=== PATIENT | male | born 1990 | race Caucasian/White ===

== ENCOUNTER 2021-10-24 16:19 | Inpatient (IN) | payer SELFPAY ==
[2021-10-24 16:25] VITALS: BP 175/99; PULSE 89; RESP 18; TEMP 36.4; O2SAT 100; BMI 24.3
[2021-10-24] MEDS: LORazepam 2 mg/mL INJ 1 mL IM (16:44)
[2021-10-24] MEDS: haloperidol inj 5 mg/mL INJ 1 mL IM (16:44)
[2021-10-24 16:56] LABS: Basophils # 0.1 10^3/uL (0.0-0.1); Basophils % 0.7 %; Eosinophils # 0.1 10^3/uL (0.0-0.8); Eosinophils % 2.1 %; Hematocrit 46.4 % (42.0-52.0); Hemoglobin 15.6 g/dL (11.7-16.6); Lymphocytes # 1.2 10^3/uL (0.8-4.8); Lymphocytes % 17.7 %; Mean Corpuscular HGB Conc 33.6 g/dL (30.0-36.0); Mean Corpuscular Hemoglobin 29.9 pg (28.0-34.0); Mean Corpuscular Volume 89.1 fl (80-94); Mean Platelet Volume 9.3 fL (7.4-10.4); Monocytes # 0.7 10^3/uL (0.2-0.9); Monocytes % 9.8 %; Neutrophils # 4.69 10^3/uL (1.8-7.7); Neutrophils % 69.6 %; Nucleated Red Blood Cells % 0 %; Platelet Count 369 10^3/cmm (130-400); Red Blood Count 5.21 10^6/uL (4.1-5.3); Red Cell Distribution Width 12.6 % (12.1-15.1); White Blood Count 6.7 10^3/uL (4.0-10.0)
--- NOTE | 2021-10-24 16:57 | W.PM.NPUH&PS ---
Providers/Chief Complaint Admitting Physician: Cesar Gunn MD Chief Complaint: 96 HPI NPU History of Present Illness Yoandy Marcum is a 31 year old male who presented to the emergency department with the following report: Chief Complaint: Psychiatric Symptoms Stated Complaint: 96 Time Seen by Provider: 10/24/21 16:24 Source: patient and police Mode of arrival: other (police) Limitations: no limitations History of Present Illness: 31-year-old male who here with police hallucinations. Patient had been arrested yesterday and a 12-hour hold state when he was incarcerated yesterday he was not acting quite right not making much sense but they did discharge him with the discharge and he had got called again for some shoplifting and he had been hitting his head he states that since picking up that he has been having some hallucinations. Patient here is having flight of ideas it is hard to get a full history from Associated symptoms: Reports auditory hallucinations This is an underweight white female in hospital scrubs with adequate grooming and eye contact. No abnormal movements except for mild psychomotor retardation. Cooperative with exam in mild distress. Speech was normal rate and volume. Mood described as better than yesterday, affect slightly subdued. Thought process organized. Thought contact: patient denies suicidal or homicidal ideation, there were no delusions reported or noted, patient denied auditory or visual hallucinations. Attention and concentration appeared intact and memory appeared reliable but none were formally tested. Patient is alert and oriented times three. Insight and judgment appear fair and impulse control appears limited. He was seen in the emergency department and questions about him being able to stay for evaluation raised the consult was initiated. Patient was a limited historian mostly talking about that he came to the hospital for joint pain but not being able to explain his level of incoherence. He mentioned something about having a drink but his BAL is negative and his UDS was negative as well. He continued to be out of sorts but reported he would cooperate if he were admitted. When he was seen he was still in handcuffs from his chair. He reports that he is from [place] but that he was down here visiting his biological father. He reports he has medication including Adderall XR and his medications but did report a history of some possible psychiatric disorder like bipolar schizophrenia. But then could not articulate any more information. According to the crabbing machine operator he had been on a hold and was released from that hold but then went down into town and did strange behaviors possibly including criminal behaviors. Patient had no recollection of anything other than people getting him a hard time. He reports he smokes cigarettes but denies any other significant drug use. Other than what he reported earlier that was not identified in the drug screen. He could not really give good past history. He endorsed having some legal challenges and had adopted but here as part of his seeking out of his biological family. He denies any other issues. Meds NPU Home Medications Medication Instructions Recorded Confirmed Last Taken Type alprazolam 0.25 mg tablet 0.25 mg PO DAILY PRN 10/24/21 10/24/21 Unknown History dextroamphetamine-amphetamine 20 10 mg PO DAILY@1200 10/24/21 10/24/21 Unknown History mg tablet dextroamphetamine-amphetamine ER 30 mg PO DAILY 10/24/21 10/24/21 Unknown History 30 mg 24hr capsule,extend release (Adderall XR) gabapentin 300 mg capsule 300 mg PO TID 10/24/21 10/24/21 Unknown History trazodone 50 mg tablet 50 mg PO BEDTIME PRN 10/24/21 10/24/21 Unknown History Allergies Allergy/AdvReac Type Severity Reaction Status Date / Time No Known Allergies Allergy Verified 10/24/21 16:25 Mental Status Exam MSE Comments: There is a well-nourished well-developed white male with limited dress, grooming and eye contact. No abnormal movements except for psychomotor agitation. Semicooperative with exam in mild to moderate distress. Speech was limited and slurred but normal rate and volume. Mood described as tired affect groggy. Thought process somewhat disorganized. Thought content: Patient denied suicidal or homicidal ideation, there were no delusions reported but he did have odd thinking, he denied auditory visual hallucinations. Attention concentration were limited and memory was somewhat reliable but limited, but none were formally tested. He is alert and oriented to person and place. Insight and judgment are impaired impulse control impaired. Vitals/I&O/Wt Last Vital Signs Temp 98.2 F 10/24/21 20:51 Pulse 90 10/24/21 20:51 Resp 19 H 10/24/21 20:51 BP 146/92 10/24/21 20:51 Pulse Ox 97 10/24/21 20:51 Weight last 48 hrs Weight 95.254 kg Data NPU : 10/24/21 16:50 10/24/21 16:50 A&P Assessment and plan (1) Acute psychosis: Status: Acute (2) History of ADHD: Status: Acute Plan This is a 32-year-old white male who presents with a reported psychiatric history: ADHD and other conditions that he was unable to articulate and shares custody with reports of behavior seeming out of sorts and unable to get a real clear explanation of his current behavior 1. Continue current medication. We will try to get a better picture of his medications and past psychiatric history. 2. Continue every 15 minute checks for safety. 3. Encourage individual, group and milieu therapies. 4. Encourage sober living treatment after discharge at the highest level of care to which he is willing to commit. Involuntary Hold Information 96 Hour Hold: 96 Hour Involuntary Admission: Yes 96 Hour Hold Ending Date: 10/29/21 96 Hour Hold Ending Time: 00:01 Attestations NPU Medical Necessity Statement*: Inpatient hospitalization is medically necessary and the clinically appropriate intervention at this time. We will monitor medication to make changes as indicated. Patient will be in the hospital for over two midnights. Likely length of stay 3 to 5 days. Coding Level of Care Code Acute Coconut Candy Maker for Tami Trammell Diagnoses Acute psychosis F23 History of ADHD Z86.59
[2021-10-24 17:04] LABS: Add Urine Microscopic? NO; Charge for UA Resulting for Rev
[2021-10-24 17:09] LABS: Urine Appearance Clear (CLEAR); Urine Color Straw (Yellow); pH Urine 8 (5-7)
[2021-10-24 17:10] LABS: Bilirubin Urine Neg (Negative); Blood Urine Neg (Negative); Glucose Urine UA Norm (Normal); Ketones Urine Negative (Negative); Leukocyte Esterase Urine Negative (Negative); Nitrate Urine Negative (Negative); Protein Urine Neg (Negative); Sulfosalicylic Acid Urine Negative (Negative); Urobilinogen Urine Norm (Negative)
[2021-10-24 17:13] LABS: Alanine Aminotransferase 29 U/L (0-41); Albumin Level 4.7 g/dL (3.5-5.2); Alkaline Phosphatase 124 IU/L (40-130); Anion Gap 17.1 (5-19); Aspartate Amino Transferase 43 U/L (0-40); Blood Urea Nitrogen 6 mg/dL (6-20); Calcium 8.9 mg/dL (8.5-10.5); Carbon Dioxide 25 mmol/L (22-29); Chloride 99 mmol/L (98-107); Globulin 2.4 g/dL (1.3-4.6); Glomerular Filtration Rate 192.7 mL/min (90-130); Glucose 100 mg/dL (65-115); Osmolality Calculated 282 mOsm/kg (285-295); Potassium 4.1 mmol/L (3.5-5.1); Salicylate 0.4 mg/dL (3-10); Sodium 137 mmol/L (136-145); Total Bilirubin 0.5 mg/dL (0.15-1.2); Total Protein 7.1 g/dL (6.6-8.7)
[2021-10-24 17:14] LABS: Amphetamines Screen Urine Negative (Negative); Barbiturates Screen Urine Negative (Negative); Benzodiazepines Screen Urine Negative (Negative); Cocaine Screen Urine Negative (Negative); Opiate Screen Urine Negative (Negative); PCP Screen Urine Negative (Negative); THC Screen Urine Negative (Negative)
[2021-10-24 17:14] LABS: Acetaminophen < 5.0 ug/mL (10-30); Alcohol Level < 10 mg/dL (0-10)
--- NOTE | 2021-10-24 17:18 | W.ED.PSYCHS ---
HPI - Psych General: Chief Complaint: Psychiatric Symptoms Stated Complaint: 96 Time Seen by Provider: 10/24/21 16:24 Source: patient and police Mode of arrival: other (police) Limitations: no limitations History of Present Illness: 31-year-old male who here with police hallucinations. Patient had been arrested yesterday and a 12-hour hold state when he was incarcerated yesterday he was not acting quite right not making much sense but they did discharge him with the discharge and he had got called again for some shoplifting and he had been hitting his head he states that since picking up that he has been having some hallucinations. Patient here is having flight of ideas it is hard to get a full history from Associated symptoms: Reports auditory hallucinations Review of Systems Const: Denies: fever(s), chills, body aches or change in appetite Eyes: Denies: blurry vision or eye discomfort ENMT: Denies: throat pain or dental pain Card: Denies: chest pain Resp: Denies: dyspnea GI: Denies: abdominal pain, nausea, vomiting or diarrhea : Denies: dysuria Musc: Denies: neck pain or back pain Skin/Breast: Denies: rash Neuro: Denies: headache(s) Psych: Reports: mood swings and auditory hallucinations Moisés/Lymph: Denies: easy bruising All/Imm: Denies: urticaria Physical Exam Const: COMMON NORMALS: no acute distress, patient oriented x3 and healthy appearing HENMT: COMMON NORMALS: normocephalic and atraumatic HEAD & SCALP: normocephalic and atraumatic Eye: COMMON NORMALS: Equal, round and reactive pupils present and EOMs intact bilaterally PUPIL: Yes Equal, round and reactive pupils present Neck/C-Spine: COMMON NORMALS: full ROM and supple Chest: COMMONS NORMALS: normal inspection of the chest and normal palpation of entire chest wall Resp: COMMON NORMALS: normal respiratory effort, No retractions, No use of accessory muscles and clear to auscultation bilaterally AUSCULTATION: clear to auscultation bilaterally Cardio: COMMON NORMALS: regular rate, regular rhythm and No murmurs present (Cardio) RATE: regular rate RHYTHM: regular rhythm GI: COMMON NORMALS: Normal to inspection, nondistended, normoactive bowel sounds present, Soft to palpation, non-tender and no masses PALPATION: Yes Soft to palpation Extremity: COMMON NORMALS: normal to inspection and full ROM Neuro: COMMON NORMALS: patient oriented x3, moves all extremities and no focal motor deficits Psych: COMMON NORMALS: cooperative THOUGHT PROCESS: disorganized and Flight of ideas present THOUGHT CONTENT: Yes Hallucination(s) present Skin: COMMON NORMALS: no rashes or lesions noted and no wounds GENERAL SKIN EXAM: no rashes or lesions noted Course Vital Signs: Vital signs: Vital Signs Temperature 97.5 F L 10/24/21 16:25 Pulse Rate 89 10/24/21 16:25 Respiratory Rate 18 10/24/21 16:25 Blood Pressure 175/99 10/24/21 16:25 Pulse Oximetry 100 10/24/21 16:25 MDM - Psych Medical Decision Making Patient presents here with police with hallucinations along with erratic behavior patient placed under 96-hour hold patient was seen by Dr. Gunn in the ER will admit at this time to the Neuropsych Unit Lab Data : 10/24/21 16:50 10/24/21 16:50 Laboratory Results WBC 6.7 10^3/uL (4.0-10.0) 10/24/21 16:50 RBC 5.21 10^6/uL (4.1-5.3) 10/24/21 16:50 Hgb 15.6 g/dL (11.7-16.6) 10/24/21 16:50 Hct 46.4 % (42.0-52.0) 10/24/21 16:50 MCV 89.1 fl (80-94) 10/24/21 16:50 MCH 29.9 pg (28.0-34.0) 10/24/21 16:50 MCHC 33.6 g/dL (30.0-36.0) 10/24/21 16:50 RDW 12.6 % (12.1-15.1) 10/24/21 16:50 Plt Count 369 10^3/cmm (130-400) 10/24/21 16:50 MPV 9.3 fL (7.4-10.4) 10/24/21 16:50 Neut % (Auto) 69.6 % 10/24/21 16:50 Lymph % (Auto) 17.7 % 10/24/21 16:50 Lawrence % (Auto) 9.8 % 10/24/21 16:50 Eos % (Auto) 2.1 % 10/24/21 16:50 Baso % (Auto) 0.7 % 10/24/21 16:50 Neut # (Auto) 4.69 10^3/uL (1.8-7.7) 10/24/21 16:50 Lymph # (Auto) 1.2 10^3/uL (0.8-4.8) 10/24/21 16:50 Lawrence # (Auto) 0.7 10^3/uL (0.2-0.9) 10/24/21 16:50 Eos # (Auto) 0.1 10^3/uL (0.0-0.8) 10/24/21 16:50 Baso # (Auto) 0.1 10^3/uL (0.0-0.1) 10/24/21 16:50 Nucleated RBC % (auto) 0 % 10/24/21 16:50 Nucleated RBCs # 0.0 /100WBC 10/24/21 16:50 Sodium 137 mmol/L (136-145) 10/24/21 16:50 Potassium 4.1 mmol/L (3.5-5.1) 10/24/21 16:50 Chloride 99 mmol/L (98-107) 10/24/21 16:50 Carbon Dioxide 25 mmol/L (22-29) 10/24/21 16:50 Anion Gap 17.1 (5-19) 10/24/21 16:50 BUN 6 mg/dL (6-20) 10/24/21 16:50 Creatinine 0.5 mg/dL (0.7-1.2) L 10/24/21 16:50 GFR Calculation 192.7 mL/min (90-130) H 10/24/21 16:50 Glucose 100 mg/dL (65-115) 10/24/21 16:50 Calculated Osmolality 282 mOsm/kg (285-295) L 10/24/21 16:50 Calcium 8.9 mg/dL (8.5-10.5) 10/24/21 16:50 Total Bilirubin 0.5 mg/dL (0.15-1.2) 10/24/21 16:50 AST 43 U/L (0-40) H 10/24/21 16:50 ALT 29 U/L (0-41) 10/24/21 16:50 Alkaline Phosphatase 124 IU/L (40-130) 10/24/21 16:50 Total Protein 7.1 g/dL (6.6-8.7) 10/24/21 16:50 Albumin 4.7 g/dL (3.5-5.2) 10/24/21 16:50 Globulin 2.4 g/dL (1.3-4.6) 10/24/21 16:50 Urine Color Straw (Yellow) 10/24/21 16:55 Urine Appearance Clear (CLEAR) 10/24/21 16:55 Urine pH 8 (5-7) H 10/24/21 16:55 Ur Specific Solo 1.010 (1.005-1.030) 10/24/21 16:55 Urine Protein Neg (Negative) 10/24/21 16:55 Urine Glucose (UA) Norm (Normal) 10/24/21 16:55 Urine Ketones Negative (Negative) 10/24/21 16:55 Urine Blood Neg (Negative) 10/24/21 16:55 Urine Nitrate Negative (Negative) 10/24/21 16:55 Urine Bilirubin Neg (Negative) 10/24/21 16:55 Prot Sulfosalicylic Acd Negative (Negative) 10/24/21 16:55 Urine Urobilinogen Norm mg/dL (Negative) 10/24/21 16:55 Ur Leukocyte Esterase Negative (Negative) 10/24/21 16:55 Salicylates 0.4 mg/dL (3-10) L 10/24/21 16:50 Urine Opiates Screen Negative ng/mL (Negative) 10/24/21 16:55 Acetaminophen < 5.0 ug/mL (10-30) L 10/24/21 16:50 Ur Barbiturates Screen Negative ng/mL (Negative) 10/24/21 16:55 Ur Phencyclidine Scrn Negative ng/mL (Negative) 10/24/21 16:55 Ur Amphetamines Screen Negative ng/mL (Negative) 10/24/21 16:55 U Benzodiazepines Scrn Negative ng/mL (Negative) 10/24/21 16:55 Urine Cocaine Screen Negative ng/mL (Negative) 10/24/21 16:55 U Marijuana (THC) Screen Negative ng/mL (Negative) 10/24/21 16:55 Ethyl Alcohol < 10 mg/dL (0-10) 10/24/21 16:50 Discharge Plan Discharge Patient Disposition: Admitted As Inpatient Clinical Impression: Acute psychosis Condition: Stable Prescriptions: No Action trazodone 50 mg tablet 50 mg PO BEDTIME PRN (Reason: Insomnia) 0RF alprazolam 0.25 mg tablet 0.25 mg PO DAILY PRN (Reason: Anxiety) 0RF dextroamphetamine-amphetamine 20 mg tablet 10 mg PO DAILY@1200 0RF gabapentin 300 mg capsule 300 mg PO TID 0RF Adderall XR 30 mg capsule,extended release 24hr 30 mg PO DAILY 0RF Coding Level of Care Code ED Industrial Gas Production Operator for Tami Trammell
--- NOTE | 2021-10-24 18:38 | PC.NURSE ---
Attempted to discuss 96 hour paperwork with patient but patient keeps falling asleep.
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
[2021-10-24 20:51] VITALS: BP 146/92; PULSE 90; RESP 19; TEMP 36.8; O2SAT 97
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
[2021-10-25 06:00] VITALS: RESP 20
[2021-10-25] MEDS: gabapentin 300 mg Capsule PO ×2 (08:03→21:11)
[2021-10-25] MEDS: OLANZapine 5 mg ODT PO ×2 (08:05→14:55)
--- NOTE | 2021-10-25 10:57 | PC.NURSE ---
[facility], wallet and cell phone are in their possession. Staff to notify patient.
--- NOTE | 2021-10-25 17:35 | W.PM.NPUPNS ---
Subjective NPU Subjective: Patient presents today reporting that he is feeling groggy but wanting to leave soon as possible. He continues to be either unable or unwilling to share the circumstances that got him here. He seemed a little more active according to staff but still giving limited information to help us assist in his treatment. He reports that his medications are at his biological father's place but he does not know the number. Mental Status Exam MSE Comments: There is a well-nourished well-developed white male with limited dress, grooming and eye contact.? No abnormal movements except for psychomotor agitation.? Semicooperative with exam in mild distress.? Speech was limited and slurred but increased rate and volume.? Mood described as a little better, affect odd thought process somewhat disorganized.? Thought content: Patient denied suicidal or homicidal ideation, there were no delusions reported but he did have odd thinking, he denied auditory visual hallucinations.? Attention concentration were limited and memory was somewhat reliable but limited, but none were formally tested.? He is alert and oriented to person and place.? Insight and judgment are impaired impulse control impaired. Vitals/I&O/Wt Last Vital Signs Temp 97.7 F 10/25/21 21:26 Pulse 115 H 10/25/21 21:26 Resp 19 H 10/25/21 21:26 BP 144/98 10/25/21 21:26 Pulse Ox 99 10/25/21 21:26 Weight last 48 hrs Weight 95.254 kg Data NPU : 10/24/21 16:50 10/24/21 16:50 A&P Assessment and plan (1) History of ADHD: Status: Acute (2) Acute psychosis: Status: Acute Plan This is a 32-year-old white male who presents with a reported psychiatric history: ADHD and other conditions that he was unable to articulate and shares custody with reports of behavior seeming out of sorts and unable to get a real clear explanation of his current behavior 1.? Continue current medication.? We will try to get a better picture of his medications and past psychiatric history. 2.? Continue every 15 minute checks for safety. 3.? Encourage individual, group and milieu therapies. 4.? Encourage sober living treatment after discharge at the highest level of care to which he is willing to commit. Involuntary Hold Information 96 Hour Hold: 96 Hour Involuntary Admission: Yes 96 Hour Hold Ending Date: 10/29/21 96 Hour Hold Ending Time: 00:01 Attestations NPU Medical Necessity Statement*: Inpatient hospitalization is medically necessary and the clinically appropriate intervention at this time. We will monitor medication to make changes as indicated.Likely length of stay 2-4 days. Coding Level of Care Code Acute Mixing Picker Tender for Tami Trammell Diagnoses History of ADHD Z86.59 Acute psychosis F23
[2021-10-25] MEDS: acetaminophen 325 mg Tablet 650 MG PO (18:56)
[2021-10-25] MEDS: nicotine 2 mg Gum BUCCAL (21:11)
[2021-10-25 21:26] VITALS: BP 144/98; PULSE 115; RESP 19; TEMP 36.5; O2SAT 99
[2021-10-26 06:00] VITALS: RESP 19
[2021-10-26] MEDS: nicotine 4 mg lozenge MUCOUS MEM ×3 (08:31→20:29)
[2021-10-26] MEDS: fexofenadine 60 mg Tablet 180 MG PO (08:46)
[2021-10-26] MEDS: acetaminophen 325 mg Tablet 650 MG PO (10:23)
[2021-10-26] MEDS: gabapentin 300 mg Capsule PO ×3 (12:11→20:30)
[2021-10-26 14:00] VITALS: BP 157/100; PULSE 112; RESP 18; TEMP 36.6; O2SAT 98
[2021-10-26] MEDS: OLANZapine 5 mg ODT PO ×2 (15:46→20:32)
[2021-10-26] MEDS: ibuprofen 800 mg tablet PO (15:46)
--- NOTE | 2021-10-26 18:56 | W.PM.NPUPNS ---
Subjective NPU Subjective: Patient presents today a little more clear about his thinking. But still poor historian. Large complaint today is that his feet are very painful. He reports that he was able to find his biological father's number and will work with the social work team to get information about his medication and see if he can get any more information about his history allowing us to maybe assist him with a mood stabilizer but right now he is more focused on his pain and getting treatment for that reporting that was the reason why he wanted to come to the hospital. Mental Status Exam MSE Comments: There is a well-nourished well-developed white male with limited dress, grooming and eye contact.? No abnormal movements except for psychomotor agitation.? More cooperative with exam in mild distress.? Speech was more spontaneous and less slurred but increased rate and volume.? Mood described as a lbetter, affect odd. Thought process somewhat more organized.? Thought content: Patient denied suicidal or homicidal ideation, there were no delusions reported but he did have odd thinking, he denied auditory visual hallucinations.? Attention concentration were limited and memory was somewhat reliable but limited, but none were formally tested.? He is alert and oriented to person and place.? Insight and judgment are limited, impulse control impaired. Vitals/I&O/Wt Last Vital Signs Temp 97.9 F 10/26/21 21:41 Pulse 79 10/26/21 21:41 Resp 19 H 10/26/21 21:41 BP 147/91 10/26/21 21:41 Pulse Ox 99 10/26/21 21:41 Data NPU : 10/24/21 16:50 10/24/21 16:50 A&P Assessment and plan (1) History of ADHD: Status: Acute (2) Acute psychosis: Status: Acute Plan This is a 32-year-old white male who presents with a reported psychiatric history: ADHD and other conditions that he was unable to articulate and shares custody with reports of behavior seeming out of sorts and unable to get a real clear explanation of his current behavior 1.? Continue current medication.? We will try to get a better picture of his medications and past psychiatric history now that we have biological father's number 2.? Continue every 15 minute checks for safety. 3.? Encourage individual, group and milieu therapies. 4.? Encourage sober living treatment after discharge at the highest level of care to which he is willing to commit. 5. Evaluate patient for 96-hour hold criteria. No contact from Memorandum Statement Clerk's office about any additional obligations. Involuntary Hold Information 96 Hour Hold: 96 Hour Involuntary Admission: Yes 96 Hour Hold Ending Date: 10/29/21 96 Hour Hold Ending Time: 00:01 Attestations NPU Medical Necessity Statement*: Inpatient hospitalization is medically necessary and the clinically appropriate intervention at this time. We will monitor medication to make changes as indicated.Likely length of stay 2-4 days. Coding Level of Care Code Acute Transformation Consultant for Taim Trammell Diagnoses History of ADHD Z86.59 Acute psychosis F23
[2021-10-26] MEDS: trazodone 50 mg Tablet PO ×2 (20:42→23:10)
[2021-10-26 21:41] VITALS: BP 147/91; PULSE 79; RESP 19; TEMP 36.6; O2SAT 99
--- NOTE | 2021-10-27 04:25 | PC.NURSE ---
PT UP EARLY IN SHIFT. C/O FOOT PAIN B/L AND REQUESTED X RAYS, UNABLE TO VERBALIZE WHAT HAS HAPPENED TO HIS FEET. DR NOTIFIED, PLAN TO ADDRESS IN MORNING WITH HOSPITALIST IF PAIN CONTINUES. PT TOOK PRN TRAZODONE BUT NEEDED 2ND PRN DOSE. AFTER 2ND DOSE MEDICATION EFFECTIVE AND HAS BEEN IN BED RESTING WITH EYES CLOSED.
[2021-10-27 06:00] VITALS: BP 148/98; PULSE 75; RESP 18; TEMP 36.6; O2SAT 98
[2021-10-27] MEDS: fexofenadine 60 mg Tablet 180 MG PO (08:07)
[2021-10-27] MEDS: acetaminophen 325 mg Tablet 650 MG PO (08:08)
[2021-10-27] MEDS: nicotine 4 mg lozenge MUCOUS MEM ×2 (11:50→17:02)
[2021-10-27] MEDS: gabapentin 300 mg Capsule PO ×2 (12:19→20:59)
[2021-10-27] MEDS: nicotine 2 mg Gum BUCCAL (12:46)
--- NOTE | 2021-10-27 12:47 | XRR_ITS ---
PROCEDURE INFORMATION: Exam: XR Right Foot Exam date and time: 10/27/2021 1:23 PM Age: 31 years old Clinical indication: Right foot pain. TECHNIQUE: Imaging protocol: XR Right foot. Views: 1 or 2 views. COMPARISON: No relevant prior studies available. FINDINGS: Bones/joints: There has been remote osteotomy and bunionectomy involving the 1st metatarsal. There are headless screws in the proximal 1st metatarsal and medial cuneiform. There are advanced degenerative changes at the 1st tarsometatarsal joint. Additional mild scattered degenerative changes are seen. Tiny plantar calcaneal spur. No tibiotalar joint effusion. The Achilles tendon is grossly unremarkable. No acute fracture is identified. Soft tissues: Mild dorsal soft tissue swelling. XR/XR foot RT 2V [id number] IMPRESSION: 1. Advanced degenerative changes at the 1st tarsometatarsal joint. Additional mild scattered degenerative changes are seen. 2. Tiny plantar calcaneal spur. 3. Mild dorsal soft tissue swelling. 4. No acute fracture is seen.
--- NOTE | 2021-10-27 12:47 | XRR_ITS ---
PROCEDURE INFORMATION: Exam: XR Left Foot Exam date and time: 10/27/2021 1:37 PM Age: 31 years old Clinical indication: Left foot pain. TECHNIQUE: Imaging protocol: XR Left foot. Views: 1 or 2 views. COMPARISON: No relevant prior studies available. FINDINGS: Bones/joints: There is a mild to moderate hallux valgus deformity with bunion. Small plantar calcaneal spur. No tibiotalar joint effusion. The Achilles tendon is grossly unremarkable. No acute fracture, dislocation or subluxation is identified. Soft tissues: No significant soft tissue swelling. XR/XR foot LT 2V [id number] IMPRESSION: 1. Mild to moderate hallux valgus deformity with bunion. 2. Small plantar calcaneal spur. 3. No acute fracture is identified.
[2021-10-27 13:38] VITALS: BP 137/98; PULSE 111; RESP 18; TEMP 36.7; O2SAT 98
--- NOTE | 2021-10-27 14:18 | PM.CONSULT ---
Providers/Reason For Consult Consulting Physician/Specialty*: Cornelius Cardoza MD, hospitalist Reason for Consult*: Foot pain Requesting Physician: Dr. Gunn Attending Physician: Cesar Gunn MD History of Present Illness History of Present Illness Yoandy Marcum is a 31 year old male who was hospitalized in the neuropsychiatric unit secondary to concern of psychosis. Patient reports he really wanted seen here at the hospital, secondary to his bilateral foot pain. He reports he has been followed by printed circuit boards solder leveler in the past. Both feet hurt, but the left foot hurts worse than the right. He does have history of trauma to his left foot at some time in the last 2 to 3 weeks. It sounds like he has had surgery before, perhaps for hallux valgus deformity on the right. He is wondering what he can take for the pain. He reports he does not have any orthotics currently. He denies any other concerns to me currently, but is asking when he could potentially go home. Review of Systems General: Reports: 10 or more systems reviewed and unremarkable except in HPI and below Medications/Allergies Home Medications Medication Instructions Recorded Confirmed Last Taken Type alprazolam 0.25 mg tablet 0.25 mg PO DAILY PRN 10/24/21 10/24/21 Unknown History dextroamphetamine-amphetamine 20 10 mg PO DAILY@1200 10/24/21 10/24/21 Unknown History mg tablet dextroamphetamine-amphetamine ER 30 mg PO DAILY 10/24/21 10/24/21 Unknown History 30 mg 24hr capsule,extend release (Adderall XR) gabapentin 300 mg capsule 300 mg PO TID 10/24/21 10/24/21 Unknown History trazodone 50 mg tablet 50 mg PO BEDTIME PRN 10/24/21 10/24/21 Unknown History Allergies Allergy/AdvReac Type Severity Reaction Status Date / Time No Known Allergies Allergy Verified 10/24/21 16:25 Current Medications Generic Name Dose Route Start Last Admin Trade Name Freq PRN Reason Stop Dose Admin Acetaminophen 650 mg 10/24/21 18:51 10/27/21 08:08 Acetaminophen 325 Mg Tablet PO 650 mg Q4H PRN Administration MILD PAIN Fexofenadine HCl 180 mg 10/26/21 09:00 10/27/21 08:07 Fexofenadine 60 Mg Tablet PO 180 mg DAILY SHIRLENE Administration Gabapentin 300 mg 10/25/21 09:00 10/27/21 12:19 Gabapentin 300 Mg Capsule PO 300 mg TID SHIRLENE Administration Ibuprofen 800 mg 10/26/21 15:35 10/26/21 15:46 Ibuprofen 800 Mg Tablet PO 800 mg Q8H PRN Administration MODERATE PAIN Nicotine Polacrilex 2 mg 10/24/21 18:51 10/27/21 12:46 Nicotine 2 Mg Gum BUCCAL 2 mg Q2H PRN Administration NICOTINE WITHDRAWAL Nicotine Polacrilex 4 mg 10/26/21 08:08 10/27/21 11:50 Nicotine 4 Mg Lozenge MUCOUS MEM 4 mg Q2H PRN Administration NICOTINE CRAVINGS Non-Formulary Medication 10 mg 10/25/21 12:00 10/26/21 13:40 Dextroamphetamine-Amphetamine PO Not Given DAILY@1200 [facility] Non-Formulary Medication 30 mg 10/25/21 09:00 10/27/21 08:11 Dextroamphetamine-Amphetamine [Adderall Xr] PO Not Given DAILY SHIRLENE Olanzapine 5 mg 10/24/21 18:51 10/26/21 20:32 Olanzapine 5 Mg Odt PO 5 mg Q4H PRN Administration Agitation/Psychosis Trazodone HCl 50 mg 10/24/21 18:51 10/26/21 23:10 Trazodone 50 Mg Tablet PO 50 mg BEDTIME PRN Administration SLEEP PFSH Acute PFSH: Social History (Updated 10/27/21 @ 14:20 by Cornelius Cardoza MD) Smoking and tobacco status: current every day smoker Vitals/I&O/Wt Last Vital Signs Temp 98.1 F 10/27/21 13:38 Pulse 111 H 10/27/21 13:38 Resp 18 10/27/21 13:38 BP 137/98 10/27/21 13:38 Pulse Ox 98 10/27/21 13:38 Physical Exam Narrative: General exam is an alert and oriented male, reporting he has pain Head is atraumatic and normocephalic. Pupils equally round. Skin no rash Extremities no cyanosis clubbing or edema. Gait appears normal Examination of bilateral feet demonstrates a scar, overlying the right first metatarsal. He has evidence of pes planus bilaterally, with some supination/valgus deformity bilaterally. No bruising is noted, nor edema. Cap refill is brisk and pulses are easily felt. No definite pain to palpation, on my exam. Calluses are noted on the plantar surface. Data : 10/24/21 16:50 10/24/21 16:50 A&P Assessment and plan (1) Foot pain: Patient with bilateral foot pain, left greater than right. History of trauma in the last several weeks on the left side. Previous surgery on the right, I suspect secondary to hallux valgus . At this point I recommended patient take ibuprofen as needed for pain, wear his shoes during his stay at the neuropsychiatric unit, and follow-up with his printed circuit boards solder leveler or printed circuit boards solder leveler here in town on discharge. Secondary to history of trauma and pain x-rays will be obtained bilaterally. Status: Acute Consult Attestations Medical Necessity Statement: Thank you for this consultation. Coding Level of Care Code Acute Shell Shop Supervisor for Tami Trammell Diagnoses Foot pain M79.673
--- NOTE | 2021-10-27 15:53 | W.PM.NPUPNS ---
Subjective NPU Subjective: Patient presents today reporting that he did see the hospitalist and they are working on his feet believes what they can do to assist with his pain in his feet. He reports he was able to talk with dad and his dad did say that he could come there after discharge. We discussed the Dr. Nix will be there in the morning but that his 96-hour hold does essentially in tomorrow due to when it ends on 10/29/2021 and that we had no intention of filing a 21-day hold at this time. Mental Status Exam MSE Comments: There is a well-nourished well-developed white male with limited dress, grooming and eye contact.? No abnormal movements except for psychomotor agitation.? More cooperative with exam in mild distress.? Speech was more spontaneous and normal rate but increased volume.? Mood described as I feel like I am better and ready to go, affect odd.? Thought process more organized.? Thought content: Patient denied suicidal or homicidal ideation, there were no delusions reported, but he did have odd thinking, he denied auditory or visual hallucinations.? Attention concentration were limited and memory was somewhat reliable but limited, but none were formally tested.? He is alert and oriented x3.? Insight and judgment are limited, impulse control improving. Vitals/I&O/Wt Last Vital Signs Temp 98.1 F 10/27/21 13:38 Pulse 111 H 10/27/21 13:38 Resp 18 10/27/21 13:38 BP 137/98 10/27/21 13:38 Pulse Ox 98 10/27/21 13:38 Data NPU : 10/24/21 16:50 10/24/21 16:50 A&P Assessment and plan (1) Foot pain: Status: Acute (2) History of ADHD: Status: Acute (3) Acute psychosis: Status: Acute Plan This is a 32-year-old white male who presents with a reported psychiatric history: ADHD and other conditions that he was unable to articulate and shares custody with reports of behavior seeming out of sorts and unable to get a real clear explanation of his current behavior 1.? Continue current medication.? 2.? Continue every 15 minute checks for safety. 3.? Encourage individual, group and milieu therapies. 4.? Encourage sober living treatment after discharge at the highest level of care to which he is willing to commit. 5.? 96-hour hold ends at 0001 on 10/29/2021 so we will plan for discharge tomorrow. No contact from Applications Support Specialist's office about any additional obligations. Involuntary Hold Information 96 Hour Hold: 96 Hour Involuntary Admission: Yes 96 Hour Hold Ending Date: 10/29/21 96 Hour Hold Ending Time: 00:01 Attestations NPU Medical Necessity Statement*: Inpatient hospitalization is medically necessary and the clinically appropriate intervention at this time. We will monitor medication to make changes as indicated. Likely length of stay 1-3 days. Coding Level of Care Code Acute Foam Gun Operator for Chg Fwd Diagnoses Foot pain M79.673 History of ADHD Z86.59 Acute psychosis F23
[2021-10-27] MEDS: OLANZapine 5 mg ODT PO (17:54)
[2021-10-27] MEDS: trazodone 50 mg Tablet PO ×2 (20:59→23:49)
[2021-10-27 21:27] VITALS: BP 139/80; PULSE 82; RESP 18; TEMP 36.6; O2SAT 99
[2021-10-27] MEDS: hyDROXYzine 25 mg Capsule 50 MG PO (21:35)
[2021-10-28 06:00] VITALS: BP 147/95; PULSE 96; RESP 18; TEMP 36.6; O2SAT 97
--- NOTE | 2021-10-28 07:39 | P.NPUDS_ITS ---
Diagnoses at Discharge Discharge Diagnosis (1) Foot pain: Status: Acute Reason for Visit Reason for Visit: 96 Brief History: History of Present Illness Yoandy Marcum is a 31 year old male who presented to the emergency department with the following report: Chief Complaint: Psychiatric Symptoms Stated Complaint: 96 Time Seen by Provider: 10/24/21 16:24 Source: patient and police Mode of arrival: other (police) Limitations: no limitations History of Present Illness:? 31-year-old male who here with police hallucinations.? Patient had been arrested yesterday and a 12-hour hold state when he was incarcerated yesterday he was not acting quite right not making much sense but they did discharge him with the discharge and he had got called again for some shoplifting and he had been hitting his head he states that since picking up that he has been having some hallucinations.? Patient here is having flight of ideas it is hard to get a full history from Associated symptoms: Reports auditory hallucinations This is an underweight white female in hospital scrubs with adequate grooming and eye contact. No abnormal movements except for mild psychomotor retardation. Cooperative with exam in mild distress. Speech was normal rate and volume. Mood described as better than yesterday, affect slightly subdued. Thought process organized. Thought contact: patient denies suicidal or homicidal ideation, there were no delusions reported or noted, patient denied auditory or visual hallucinations. Attention and concentration appeared intact and memory appeared reliable but none were formally tested. Patient is alert and oriented times three. Insight and judgment appear fair and impulse control appears limited. He was seen in the emergency department and questions about him being able to stay for evaluation raised the consult was initiated.? Patient was a limited historian mostly talking about that he came to the hospital for joint pain but not being able to explain his level of incoherence.? He mentioned something about having a drink but his BAL is negative and his UDS was negative as well.? He continued to be out of sorts but reported he would cooperate if he were admitted.? When he was seen he was still in handcuffs from his chair.? He reports that he is from [place] but that he was down here visiting his biological father.? He reports he has medication including Adderall XR and his medications but did report a history of some possible psychiatric disorder like bipolar schizophrenia.? But then could not articulate any more information.? According to the planograph operator he had been on a hold and was released from that hold but then went down into town and did strange behaviors possibly including cri schuyler behaviors.? Patient had no recollection of anything other than people getting him a hard time.? He reports he smokes cigarettes but denies any other significant drug use.? Other than what he reported earlier that was not identified in the drug screen.? He could not really give good past history.? He endorsed having some legal challenges and had adopted but here as part of his seeking out of his biological family.? He denies any other issues. Hospital Course Hospital Course He slowly acclimated to the individual, group and milieu therapies provided. His Adderall XR was not started because it is not formulary. He was given only as needed medications. He said that Zyprexa Zydis was the most helpful. He tolerated these doses and showed steady improvement during his stay. He was able to contract for safety outside hospital prior to discharge. During the hospitalization, patient had routine laboratory studies which were within normal limits except for few outliers. Additionally there was a general medical evaluation which was also within normal limits and revealed no new acute processes. Discharge Summary: At the time of discharge, lethality was denied and psychosis was resolving. Mood and anxiety were well managed. Patient endorsed a plan to follow-up with the aftercare recommendations of the treatment team. Patient was evaluated and deemed to be absent credible lethality, and had achieved the maximum benefit from an inpatient hospitalization, so was discharged. Involuntary Hold Information 96 Hour Hold: 96 Hour Involuntary Admission: Yes 96 Hour Hold Ending Date: 10/29/21 96 Hour Hold Ending Time: 00:01 Mental Status Exam MSE Comments: There is a well-nourished well-developed white male with limited dress, grooming and eye contact.? No abnormal movements except for very mild psychomotor agitation.? More cooperative with exam in no distress.? Speech was more spontaneous and less slurred with normal rate and volume.? Mood described as a better, affect odd. Thought process somewhat more organized.? Thought content: Patient denied suicidal or homicidal ideation, there were no delusions reported but he did have odd thinking, he denied auditory visual hallucinations.? Attention concentration were limited and memory was somewhat reliable but limited, but none were formally tested.? He is alert and oriented to person and place.? Insight and judgment are limited, impulse control impaired. Cognition: Patient Appearance: Appropriate Level of Consciousness: Awake Patient Cognition Impaired: No Ability to Follow Directions: Excellent Patient Orientation (long list): Person, Name, Age and Birthday Comprehension Ability: No Impairment Hallucination Type: None Delusion Description: Grandiose Thought Process: Disorganized Affect: Affect Description: Calm Behavior: Patient Behavior: Appropriate Speech Pattern: Appropriate and Clear Discharge Data Studies Completed and Pending: Completed Studies During Hospitalization Category Date Time Status XR foot LT 2V 736 20 Routine Exams 10/27/21 12:47 Completed XR foot RT 2V 736 20 Routine Exams 10/27/21 12:47 Completed Radiology Impressions Foot X-Ray 10/27/21 12:47 IMPRESSION: 1. Advanced degenerative changes at the 1st tarsometatarsal joint. Additional mild scattered degenerative changes are seen. 2. Tiny plantar calcaneal spur. 3. Mild dorsal soft tissue swelling. 4. No acute fracture is seen. Laboratory Results WBC 6.7 10^3/uL (4.0- 10.0) 10/24/21 16:50 RBC 5.21 10^6/uL (4.1 -5.3) 10/24/21 16:50 Hgb 15.6 g/dL (11.7-1 6.6) 10/24/21 16:50 Hct 46.4 % (42.0-52.0 ) 10/24/21 16:50 MCV 89.1 fl (80-94) 10/24/21 16:50 MCH 29.9 pg (28.0-34. 0) 10/24/21 16:50 MCHC 33.6 g/dL (30.0-3 6.0) 10/24/21 16:50 RDW 12.6 % (12.1-15.1 ) 10/24/21 16:50 Plt Count 369 10^3/cmm (130 -400) 10/24/21 16:50 MPV 9.3 fL (7.4-10.4) 10/24/21 16:50 Neut % (Auto) 69.6 % 10/24/21 16:50 Lymph % (Auto) 17.7 % 10/24/21 16:50 Grimes % (Auto) 9.8 % 10/24/21 16:50 Eos % (Auto) 2.1 % 10/24/21 16:50 Baso % (Auto) 0.7 % 10/24/21 16:50 Neut # (Auto) 4.69 10^3/uL (1.8 -7.7) 10/24/21 16:50 Lymph # (Auto) 1.2 10^3/uL (0.8- 4.8) 10/24/21 16:50 Grimes # (Auto) 0.7 10^3/uL (0.2- 0.9) 10/24/21 16:50 Eos # (Auto) 0.1 10^3/uL (0.0- 0.8) 10/24/21 16:50 Baso # (Auto) 0.1 10^3/uL (0.0- 0.1) 10/24/21 16:50 Nucleated RBC % (a uto) 0 % 10/24/21 16:50 Nucleated RBCs # 0.0 /100WBC 10/24/21 16:50 Sodium 137 mmol/L (136-1 45) 10/24/21 16:50 Potassium 4.1 mmol/L (3.5-5 .1) 10/24/21 16:50 Chloride 99 mmol/L (98-107 ) 10/24/21 16:50 Carbon Dioxide 25 mmol/L (22-29) 10/24/21 16:50 Anion Gap 17.1 (5-19) 10/24/21 16:50 BUN 6 mg/dL (6-20) 10/24/21 16:50 Creatinine 0.5 mg/dL (0.7-1. 2) L 10/24/21 16:50 GFR Calculation 192.7 mL/min (90- 130) H 10/24/21 16:50 Glucose 100 mg/dL (65-115 ) 10/24/21 16:50 Calculated Osmolal ity 282 mOsm/kg (285- 295) L 10/24/21 16:50 Calcium 8.9 mg/dL (8.5-10 .5) 10/24/21 16:50 Total Bilirubin 0.5 mg/dL (0.15-1 .2) 10/24/21 16:50 AST 43 U/L (0-40) H 10/24/21 16:50 ALT 29 U/L (0-41) 10/24/21 16:50 Alkaline Phosphata se 124 IU/L (40-130) 10/24/21 16:50 Total Protein 7.1 g/dL (6.6-8.7 ) 10/24/21 16:50 Albumin 4.7 g/dL (3.5-5.2 ) 10/24/21 16:50 Globulin 2.4 g/dL (1.3-4.6 ) 10/24/21 16:50 Urine Color Straw (Yellow) 10/24/21 16:55 Urine Appearance Clear (CLEAR) 10/24/21 16:55 Urine pH 8 (5-7) H 10/24/21 16:55 Ur Specific Gravit y 1.010 (1.005-1.0 30) 10/24/21 16:55 Urine Protein Neg (Negative) 10/24/21 16:55 Urine Glucose (UA) Norm (Normal) 10/24/21 16:55 Urine Ketones Negative (Negati ve) 10/24/21 16:55 Urine Blood Neg (Negative) 10/24/21 16:55 Urine Nitrate Negative (Negati ve) 10/24/21 16:55 Urine Bilirubin Neg (Negative) 10/24/21 16:55 Prot Sulfosalicyli c Acd Negative (Negati ve) 10/24/21 16:55 Urine Urobilinogen Norm mg/dL (Negat dhaval) 10/24/21 16:55 Ur Leukocyte Tabby ase Negative (Negati ve) 10/24/21 16:55 Salicylates 0.4 mg/dL (3-10) L 10/24/21 16:50 Urine Opiates Scre en Negative ng/mL (N egative) 10/24/21 16:55 Acetaminophen < 5.0 ug/mL (10-3 0) L 10/24/21 16:50 Ur Barbiturates Sc reen Negative ng/mL (N egative) 10/24/21 16:55 Ur Phencyclidine S crn Negative ng/mL (N egative) 10/24/21 16:55 Ur Amphetamines Sc reen Negative ng/mL (N egative) 10/24/21 16:55 U Benzodiazepines Scrn Negative ng/mL (N egative) 10/24/21 16:55 Urine Cocaine Scre en Negative ng/mL (N egative) 10/24/21 16:55 U Marijuana (THC) Screen Negative ng/mL (N egative) 10/24/21 16:55 Ethyl Alcohol < 10 mg/dL (0-10) 10/24/21 16:50 Vitals: Last Vital Signs Temp 97.8 F 10/28/21 06:00 Pulse 96 10/28/21 06:00 Resp 18 10/28/21 06:00 BP 147/95 10/28/21 06:00 Pulse Ox 97 10/28/21 06:00 Discharge Plan Discharge Patient Disposition: Home Condition: Stable Prescriptions: Continued trazodone 50 mg tablet 50 mg PO BEDTIME PRN (Reason: Insomnia) 0RF alprazolam 0.25 mg tablet 0.25 mg PO DAILY PRN (Reason: Anxiety) 0RF dextroamphetamine-amphetamine 20 mg tablet 10 mg PO DAILY@1200 0RF gabapentin 300 mg capsule 300 mg PO TID 0RF Adderall XR 30 mg capsule,extended release 24hr 30 mg PO DAILY 0RF Discharge Orders: Discharge Order (Routine); Ordered 10/28/21 Ordered By: Baljinder Tabares Discharge Diet: Regular Discharge Activity: Resume usual activity Patient Instructions: Opioid Safety Discharge Attestations NPU Time Spent in Discharge Care*: greater than 30 min Specific Discharge Activities: Specific discharge activities: educating patient, discussing with adult protective caseworker/social workers/dc planners, documenting/o ther paperwork and evaluating patient/reviewing data Coding Level of Care Code Acute g IRWIN note Diagnoses Foot pain M79.673
[2021-10-28 08:00] VITALS: BP 147/95; PULSE 96; RESP 18; TEMP 36.6; O2SAT 97
--- NOTE | 2021-10-28 08:47 | W.PM.EVENTAC ---
Event Note Event Note: Reviewed x-rays with patient. He is up and about. No fractures noted on x-rays. Discussed arthritis. He can see podiatry as an outpatient. Continue ibuprofen as needed.
== END 2021-10-28 08:53 | disposition home or self-care (01) | DRG 885 ==
LOC: ER 17:23 → NP 20:20
PROVIDERS: Admitting Provider Psychiatry & Neurology Psychiatry; Emergency Provider Emergency Medicine; Visit Provider Psychiatry & Neurology Psychiatry
DX: F29 Unspecified psychosis not due to a substance or known physiological condition (principal); F90.9 Attention-deficit hyperactivity disorder, unspecified type; M79.672 Pain in left foot; M79.671 Pain in right foot
CPT/HCPCS: 73620; 80053; 80306; 80307; 81003; 85025; 96372; 97150; 97165; 99285; J1630; J2060

== ENCOUNTER 2021-11-03 16:25 | Inpatient (IN) | payer SELFPAY ==
[2021-11-03 16:29] VITALS: BP 147/84; PULSE 109; RESP 18; O2SAT 93; BMI 24.3
--- NOTE | 2021-11-03 16:49 | W.ED.PSYCHS ---
HPI - Psych General: Chief Complaint: Psychiatric Symptoms Stated Complaint: 96 HOUR HOLD Time Seen by Provider: 11/03/21 16:39 History of Present Illness: 31 yo m brought in by police on 96 hr hold for threatening to kill the staff at two separate establishments. He also noted that dogs were talking to him. His cousin evidently today. He tells me he also got into a verbal altercation with his father. He has had a labile mood for police. Patient recently discharged from the neuropsychiatric unit. Patient does not admit to any drugs other than using alcohol today. Associated symptoms: Reports auditory hallucinations and homicidal ideation Review of Systems General: Reports: 10 or more systems reviewed and unremarkable except in HPI and below Psych: Reports: mood swings, irritability, difficulty concentrating, auditory hallucinations and homicidal ideation PFS ED PFSH: Social History (Updated 10/27/21 @ 14:20 by Cornelius Cardoza MD) Smoking and tobacco status: current every day smoker Physical Exam Const: COMMON NORMALS: no limitations, alert and well nourished EXAM LIMITATIONS: no altered mental status GENERAL APPEARANCE: cooperative and well developed ORIENTATION/CONSCIOUSNESS: Yes awake; not confused HENMT: COMMON NORMALS: normocephalic, atraumatic, external ears normal and Normal external nose present HEAD & SCALP: normal to inspection, normocephalic and atraumatic FACE & SINUS: face symmetric NOSE: Normal external nose present EXTERNAL EAR: Yes external ears normal Eye: SCLERA: sclerae normal EOM: Yes Nystagmus present Neck/C-Spine: COMMON NORMALS: no JVD GENERAL: Yes normal visual inspection and Yes trachea midline Resp: COMMON NORMALS: normal respiratory effort, No use of accessory muscles and clear to auscultation bilaterally EFFORT & INSPECTION: Yes able to speak in complete sentences and Yes symmetric chest movement AUSCULTATION: clear to auscultation bilaterally Cardio: COMMON NORMALS: no JVD and regular rhythm RHYTHM: regular rhythm PERIPHERAL PULSES: radial pulses present GI: COMMON NORMALS: Soft to palpation INSPECTION: Yes normal to inspection PALPATION: Yes Soft to palpation, No Tenderness to palpation present (GI) and No Guarding due to palpation present (GI) Back/Pelvis: COMMON NORMALS: thoraco-lumbar ROM normal Extremity: COMMON NORMALS: normal to inspection GENERAL: Yes normal exam except as noted Neuro: COMMON NORMALS: moves all extremities, no focal motor deficits and no sensory deficits noted SENSORIUM/ORIENTATION: Yes alert Psych: APPEARANCE: Yes grossly normal ACTIVITY/MOTOR BEHAVIOR: Yes appropriate eye contact, Yes psychomotor agitation, Yes fidgeting and Yes restless MOOD & AFFECT: Yes Labile affect present THOUGHT CONTENT: Yes Homicidality present INSIGHT: Poor insight present (Psych) Course Vital Signs: Vital signs: Vital Signs Pulse Rate 109 H 11/03/21 16: Respiratory Rate 18 11/03/21 16:29 Blood Pressure 147/84 11/03/21 16:29 Pulse Oximetry 93 11/03/21 16:29 [facility] - Psych Medical Decision Making Patient's medical work-up was remarkable for alcohol intoxication. No other significant findings. Of note the patient is not found to be on any identifiable psychoactive stimulants. His behavior has been labile. He was directable and we were able to de-escalate him for a while. However then he began to want to wander and when asked to go back into his room became agitated. Ultimately he could not be redirected or de-escalated verbally and chemical anxiolysis was provided as the patient was banging on the elliott. Patient responded well to chemical anxiolysis. He has now being admitted to the neuropsychiatric unit for further treatment. Lab Data : 11/03/21 16:55 11/03/21 16:55 Laboratory Results WBC 5.7 10^3/uL (4.0-10.0) 11/03/21 16:55 RBC 4.79 10^6/uL (4.1-5.3) 11/03/21 16:55 Hgb 14.2 g/dL (11.7-16.6) 11/03/21 16:55 Hct 43.7 % (42.0-52.0) 11/03/21 16:55 MCV 91.2 fl (80-94) 11/03/21 16:55 MCH 29.6 pg (28.0-34.0) 11/03/21 16:55 MCHC 32.5 g/dL (30.0-36.0) 11/03/21 16:55 RDW 13.0 % (12.1-15.1) 11/03/21 16:55 Plt Count 273 10^3/cmm (130-400) 11/03/21 16:55 MPV 9.5 fL (7.4-10.4) 11/03/21 16:55 Neut % (Auto) 57.6 % 11/03/21 16:55 Lymph % (Auto) 32.5 % 11/03/21 16:55 Miner % (Auto) 8.0 % 11/03/21 16:55 Eos % (Auto) 1.4 % 11/03/21 16:55 Baso % (Auto) 0.5 % 11/03/21 16:55 Neut # (Auto) 3.30 10^3/uL (1.8-7.7) 11/03/21 16:55 Lymph # (Auto) 1.9 10^3/uL (0.8-4.8) 11/03/21 16:55 Miner # (Auto) 0.5 10^3/uL (0.2-0.9) 11/03/21 16:55 Eos # (Auto) 0.1 10^3/uL (0.0-0.8) 11/03/21 16:55 Baso # (Auto) 0.0 10^3/uL (0.0-0.1) 11/03/21 16:55 Nucleated RBC % (auto) 0 % 11/03/21 16:55 Nucleated RBCs # 0.0 /100WBC 11/03/21 16:55 Sodium 138 mmol/L (136-145) 11/03/21 16:55 Potassium 3.9 mmol/L (3.5-5.1) 11/03/21 16:55 Chloride 102 mmol/L (98-107) 11/03/21 16:55 Carbon Dioxide 23 mmol/L (22-29) 11/03/21 16:55 Anion Gap 16.9 (5-19) 11/03/21 16:55 BUN 8 mg/dL (6-20) 11/03/21 16:55 Creatinine 0.7 mg/dL (0.7-1.2) 11/03/21 16:55 GFR Calculation 130.7 mL/min (90-130) H 11/03/21 16:55 Glucose 194 mg/dL (65-115) H 11/03/21 16:55 Calculated Osmolality 290 mOsm/kg (285-295) 11/03/21 16:55 Calcium 8.7 mg/dL (8.5-10.5) 11/03/21 16:55 Total Bilirubin 0.2 mg/dL (0.15-1.2) 11/03/21 16:55 AST 74 U/L (0-40) H 11/03/21 16:55 ALT 51 U/L (0-41) H 11/03/21 16:55 Alkaline Phosphatase 89 IU/L (40-130) 11/03/21 16:55 Total Protein 6.9 g/dL (6.6-8.7) 11/03/21 16:55 Albumin 4.3 g/dL (3.5-5.2) 11/03/21 16:55 Globulin 2.6 g/dL (1.3-4.6) 11/03/21 16:55 Urine Color Yellow (Yellow) 11/03/21 Unknown Urine Appearance Clear (CLEAR) 11/03/21 Unknown Urine pH 5 (5-7) 11/03/21 Unknown Ur Specific [place] 1.025 (1.005-1.030) 11/03/21 Unknown Urine Protein Neg (Negative) 11/03/21 Unknown Urine Glucose (UA) Norm (Normal) 11/03/21 Unknown Urine Ketones Negative (Negative) 11/03/21 Unknown Urine Blood Neg (Negative) 11/03/21 Unknown Urine Nitrate Negative (Negative) 11/03/21 Unknown Urine Bilirubin Neg (Negative) 11/03/21 Unknown Urine Urobilinogen Norm mg/dL (Negative) 11/03/21 Unknown Ur Leukocyte Esterase Negative (Negative) 11/03/21 Unknown Salicylates < 0.3 mg/dL (3-10) L 11/03/21 16:55 Urine Opiates Screen Negative ng/mL (Negative) 11/03/21 Unknown Acetaminophen < 5.0 ug/mL (10-30) L 11/03/21 16:55 Ur Barbiturates Screen Negative ng/mL (Negative) 11/03/21 Unknown Ur Phencyclidine Scrn Negative ng/mL (Negative) 11/03/21 Unknown Ur Amphetamines Screen Negative ng/mL (Negative) 11/03/21 Unknown U Benzodiazepines Scrn Negative ng/mL (Negative) 11/03/21 Unknown Urine Cocaine Screen Negative ng/mL (Negative) 11/03/21 Unknown U Marijuana (THC) Screen Negative ng/mL (Negative) 11/03/21 Unknown Ethyl Alcohol 284 mg/dL (0-10) H 11/03/21 16:55 Discharge Plan Discharge Patient Disposition: Admitted As Inpatient Clinical Impression: Acute psychosis, Homicidal ideations, Alcohol intoxication Condition: Stable Coding Level of Care Code ED Field Service Representative for Tami Trammell
[2021-11-03] MEDS: nicotine 14 mg Patch 1 PATCH TRANSDERMA (16:55)
[2021-11-03] MEDS: LORazepam 1 mg Tablet PO (16:56)
[2021-11-03 17:15] LABS: Basophils % 0.5 %; Eosinophils # 0.1 10^3/uL (0.0-0.8); Eosinophils % 1.4 %; Hematocrit 43.7 % (42.0-52.0); Hemoglobin 14.2 g/dL (11.7-16.6); Lymphocytes # 1.9 10^3/uL (0.8-4.8); Lymphocytes % 32.5 %; Mean Corpuscular HGB Conc 32.5 g/dL (30.0-36.0); Mean Corpuscular Hemoglobin 29.6 pg (28.0-34.0); Mean Corpuscular Volume 91.2 fl (80-94); Mean Platelet Volume 9.5 fL (7.4-10.4); Monocytes # 0.5 10^3/uL (0.2-0.9); Neutrophils % 57.6 %; Nucleated Red Blood Cells % 0 %; Platelet Count 273 10^3/cmm (130-400); Red Blood Count 4.79 10^6/uL (4.1-5.3); White Blood Count 5.7 10^3/uL (4.0-10.0)
[2021-11-03 17:50] LABS: Alanine Aminotransferase 51 U/L (0-41); Albumin Level 4.3 g/dL (3.5-5.2); Alcohol Level 284 mg/dL (0-10); Alkaline Phosphatase 89 IU/L (40-130); Anion Gap 16.9 (5-19); Aspartate Amino Transferase 74 U/L (0-40); Blood Urea Nitrogen 8 mg/dL (6-20); Calcium 8.7 mg/dL (8.5-10.5); Carbon Dioxide 23 mmol/L (22-29); Chloride 102 mmol/L (98-107); Globulin 2.6 g/dL (1.3-4.6); Glomerular Filtration Rate 130.7 mL/min (90-130); Glucose 194 mg/dL (65-115); Osmolality Calculated 290 mOsm/kg (285-295); Potassium 3.9 mmol/L (3.5-5.1); Sodium 138 mmol/L (136-145); Total Bilirubin 0.2 mg/dL (0.15-1.2); Total Protein 6.9 g/dL (6.6-8.7)
[2021-11-03 17:51] LABS: Acetaminophen < 5.0 ug/mL (10-30); Salicylate < 0.3 mg/dL (3-10)
[2021-11-03] MEDS: diphenhydrAMINE 50 mg/mL SDV 1mL IM (17:55)
[2021-11-03] MEDS: haloperidol inj 5 mg/mL INJ 1 mL 10 MG IM (17:56)
[2021-11-03] MEDS: LORazepam 2 mg/mL INJ 1 mL IM (17:56)
[2021-11-03 17:57] LABS: Add Urine Microscopic? NO; Charge for UA Resulting for Rev
[2021-11-03 18:08] LABS: Amphetamines Screen Urine Negative (Negative); Barbiturates Screen Urine Negative (Negative); Benzodiazepines Screen Urine Negative (Negative); Cocaine Screen Urine Negative (Negative); Opiate Screen Urine Negative (Negative); PCP Screen Urine Negative (Negative); THC Screen Urine Negative (Negative)
[2021-11-03 18:11] LABS: Bilirubin Urine Neg (Negative); Blood Urine Neg (Negative); Glucose Urine UA Norm (Normal); Ketones Urine Negative (Negative); Leukocyte Esterase Urine Negative (Negative); Nitrate Urine Negative (Negative); Protein Urine Neg (Negative); Specific Gravity, Urine 1.025 (1.005-1.030); Urine Appearance Clear (CLEAR); Urine Color Yellow (Yellow); Urobilinogen Urine Norm (Negative); pH Urine 5 (5-7)
[2021-11-03 19:22] VITALS: BP 140/80; PULSE 90; RESP 16; O2SAT 97
--- NOTE | 2021-11-03 19:30 | PC.NURSE ---
31 yo male brought in by police on 96 hour hold after threatening family members and 2 separate businesses that he was going to kill them. he is having [facility] telling him to hurt people. The dogs are telling him to kill others. He has been drinking alcohol with blood alcohol being 268. His UDS was clean. He has been recently d/c'd from behavioral health unit. He became aggressive with staff once here and was given a B52. He is currently resting with his eyes closed. even non labored respirations. has been changed into paper scrubs. area free of hazards. sitter at bedside.
--- NOTE | 2021-11-03 21:00 | PC.NURSE ---
patient resting with eyes closed. even non labored respirations. awakens easily. VSS. area free of hazards. sitter at bedside.
[2021-11-03 23:00] VITALS: BP 158/90; PULSE 80; RESP 18; O2SAT 98
--- NOTE | 2021-11-03 23:00 | PC.NURSE ---
patient resting with eyes closed. even non labored respirations. patient awakens easily. VSS. area free of hazards. sitter at bedside.
[2021-11-04] MEDS: HYDROcodone-acetaminophen 5-325 mg Tablet 1 TAB PO (03:10)
[2021-11-04 05:00] VITALS: BP 170/95; PULSE 78; RESP 16; O2SAT 97
[2021-11-04 07:58] VITALS: BP 163/103; PULSE 78; RESP 18; TEMP 36.7; O2SAT 96
--- NOTE | 2021-11-04 09:22 | PC.NURSE ---
PT is currently resting in bed with eyes open. PT does not currently present signs of overt activity.
[2021-11-04] MEDS: LORazepam 1 mg Tablet PO (12:18)
[2021-11-04 14:00] VITALS: BP 134/82; PULSE 92; RESP 18; TEMP 36.7; O2SAT 98
[2021-11-04] MEDS: OLANZapine 5 mg ODT PO (16:20)
[2021-11-04] MEDS: nicotine 2 mg Gum BUCCAL (16:31)
[2021-11-04 20:40] VITALS: RESP 17
[2021-11-04] MEDS: gabapentin 300 mg Capsule PO (21:13)
[2021-11-05] MEDS: trazodone 50 mg Tablet PO ×2 (02:11→20:55)
[2021-11-05 06:00] VITALS: BP 114/81; PULSE 72; RESP 17; TEMP 36.6; O2SAT 99
[2021-11-05] MEDS: hyDROXYzine 25 mg Capsule 50 MG PO ×2 (06:52→17:16)
[2021-11-05] MEDS: gabapentin 300 mg Capsule PO ×3 (08:26→20:54)
[2021-11-05] MEDS: nicotine 2 mg Gum BUCCAL ×3 (09:33→17:18)
[2021-11-05] MEDS: acetaminophen 325 mg Tablet 650 MG PO (09:46)
[2021-11-05] MEDS: fexofenadine 60 mg Tablet 180 MG PO (10:39)
--- NOTE | 2021-11-05 12:12 | P.NPUHP_ITS ---
Providers/Chief Complaint Admitting Physician: Baljinder Tabares MD Chief Complaint: 96 HOUR HOLD [facility] NPU History of Present Illness Yoandy Marcum is a 31 year old male admitted through our emergency department wi th the following report: 31 yo m brought in by police on 96 hr hold for threatening to kill the staff at two separate establishments.? He also noted that dogs were talking to him.? His cousin evidently today.? He tells me he also got into a verbal altercation with his father.? He has had a labile mood for police.? Patient recently discharged from the neuropsychiatric unit.? Patient does not admit to any drugs other than using alcohol today. Associated symptoms: Reports auditory hallucinations and homicidal ideation Affidavit from his father has talked of killing himself and others.? He is detached from reality for example talking to people who are either or not present.? Believing the dogs are telling him things.? Believing others are telling him things.? Making a general nuisance by banging things and hitting them and slamming doors etc.? Eating found food from the ground.? Throwing the puppy and then picked up a knife and threatened to kill him.? Brought in by police this morning. He was admitted to the neuropsychiatry unit for definitive treatment of these issues. He denies making any statements about hurting other people. He said that he might have expressed some frustration at a convenience store because his father was in the convenience store for 2 hours and the store would not let him in. I asked him why they would have banned him from the store. He said he had no idea. 1 time he had bought some beer and was drinking it outside and they asked him to leave. He says that he was diagnosed with mood disorder not otherwise specified at a hospital in [place]. He could not explain why he was in the hospital there. He does admit that he has had manic episodes in which he does not sleep for days. He denies any of the psychotic symptoms which it seems clear that he has during these times. He does agree to start a mood stabilizer. He does not want to take an antipsychotic. He is on gabapentin for his pain. He agreed to start some Depakote as a mood stabilizer. He says that he is manic times, when he does not have access to his Adderall. ? Below is the discharge summary from his admission earlier this month. Brief History: History of Present Illness Yoandy Marcum is a 31 year old male who presented to the emergency department with the following report: ?Chief Complaint: Psychiatric Symptoms ?Stated Complaint: 96 ?Time Seen by Provider: 10/24/21 16:24 ?Source: patient and police ?Mode of arrival: other (police) ?Limitations: no limitations ?History of Present Illness:?31-year-old male who here with police hallucinations.? Patient had been arrested yesterday and a 12-hour hold state when he was incarcerated yesterday he was not acting quite right not making much sense but they did discharge him with the discharge and he had got called again for some shoplifting and he had been hitting his head he states that since picking up that he has been having some hallucinations.? Patient here is having flight of ideas it is hard to get a full history from ?Associated symptoms: Reports auditory hallucinations ?This is an underweight white female in hospital scrubs with adequate grooming and eye contact. No abnormal movements except for mild psychomotor retardation. Cooperative with exam in mild distress. Speech was normal rate and volume. Mood described as better than yesterday, affect slightly subdued. Thought process organized. Thought contact: patient denies suicidal or homicidal ideation, there were no delusions reported or noted, patient denied auditory or visual hallucinations. Attention and concentration appeared intact and memory appeared reliable but none were formally tested. Patient is alert and oriented times three. Insight and judgment appear fair and impulse control appears limited. ?He was seen in the emergency department and questions about him being able to stay for evaluation raised the consult was initiated.? Patient was a limited historian mostly talking about that he came to the hospital for joint pain but not being able to explain his level of incoherence.? He mentioned something about having a drink but his BAL is negative and his UDS was negative as well.? He continued to be out of sorts but reported he would cooperate if he were admitted.? When he was seen he was still in handcuffs from his chair.? He reports that he is from [place] but that he was down here visiting his biological father.? He reports he has medication including Adderall XR and his medications but did report a history of some possible psychiatric disorder like bipolar schizophrenia.? But then could not articulate any more information.? According to the bank cashier he had been on a hold and was released from that hold but then went down into town and did strange behaviors possibly including criminal behaviors.? Patient had no recollection of anything other than people getting him a hard time.? He reports he smokes cigarettes but denies any other significant drug use.? Other than what he reported earlier that was not identifi ed in the drug screen.? He could not really give good past history.? He endorsed having some legal challenges and had adopted but here as part of his seeking out of his biological family.? He denies any other issues. Prescriptions: Continued ? trazodone 50 mg tablet ?? 50 mg PO BEDTIME PRN (Reason: Insomnia) 0RF ? alprazolam 0.25 mg tablet ?? 0.25 mg PO DAILY PRN (Reason: Anxiety) 0RF ? dextroamphetamine-amphetamine 20 mg tablet ?? 10 mg PO DAILY@1200 0RF ? gabapentin 300 mg capsule ?? 300 mg PO TID 0RF ? Adderall XR 30 mg capsule,extended release 24hr ?? 30 mg PO DAILY 0RF Meds NPU Home Medications Medication Instructions Recorded Confirmed Last Taken Type dextroamphetamine-amphetamine 20 10 mg PO DAILY@1200 10/24/21 11/03/21 11/02/21 History mg tablet dextroamphetamine-amphetamine ER 30 mg PO DAILY 10/24/21 11/03/21 11/03/21 History 30 mg 24hr capsule,extend release (Adderall XR) gabapentin 300 mg capsule 300 mg PO TID 10/24/21 11/03/21 11/03/21 History trazodone 50 mg tablet 50 mg PO BEDTIME PRN 10/24/21 11/03/21 Unknown History Allergies Allergy/AdvReac Type Severity Reaction Status Date / Time dogs Allergy Unknown Unknown Uncoded 11/03/21 17:24 PFS NPU PFSH: Social History (Updated 10/27/21 @ 14:20 by Cornelius Cardoza MD) Smoking and tobacco status: current every day smoker Mental Status Exam 2 MSE Comments: This is an appropriate weight 31-year-old male who appears approximately his stated age. He is pleasant and cooperative with the evaluation. He is dressed in hospital scrubs with fair grooming. He has several days' growth of davidson. psychomotor activity is normal. Speech is at a regular rate and rhythm, normal volume, good articulation, not pressured. Alert, oriented X3 Attention and concentration appears to be normal. Memory is intact Mood is frustrated at being here but otherwise good. Affect is mildly dysphoric. Thought process is logical and goal-directed. Thought content: Denies auditory and visual hallucinations. No delusions or paranoia are noted. No current suicidal ideation. He denies homicidal ideation. Fund of knowledge is probably average. Insight and judgment appear to be poor. Impulse control is poor. Vitals/I&O/Wt Last Vital Signs Temp 97.9 F 11/05/21 06:00 Pulse 72 11/05/21 06:00 Resp 17 11/05/21 06:00 BP 114/81 11/05/21 06:00 Pulse Ox 99 11/05/21 06:00 Weight last 48 hrs Weight 95.254 kg Data NPU : 11/03/21 16:55 11/03/21 16:55 A&P Assessment and plan (1) History of ADHD: Status: Acute (2) Acute psychosis: Status: Acute (3) Alcohol intoxication: Status: Acute (4) Homicidal ideations: Status: Acute (5) Bipolar disorder with psychotic features: Status: Acute Plan This is a 31-year-old male who has had several admissions for psychotic symptoms and poor insight. Plan: 1. Continue current medication. We will add Depakote and gradually increase as tolerated. 2. Continue every 15 minute checks for safety. 3. Encourage individual, group and milieu therapies. 4. Encourage sober living treatment after discharge at the highest level of care to which he is willing to commit. 5. We will monitor for safety for himself in the community prior to discharge. Involuntary Hold Information 96 Hour Hold: 96 Hour Involuntary Admission: Yes 96 Hour Hold Ending Date: 11/10/21 96 Hour Hold Ending Time: 14:00 Attestations NPU Medical Necessity Statement*: Inpatient hospitalization is medically necessary and the clinically appropriate intervention at this time. We will initiate medications and make changes as indicated. He will be in the hospital for over 2 midnights. Likely length of stay 4-6 days Coding Level of Care Code Acute Customs Inspector for Tami Trammell Diagnoses History of ADHD Z86.59 Acute psychosis F23 Alcohol intoxication F10.929 Homicidal ideations R45.850 Bipolar disorder with psychotic features F31.9
[2021-11-05] MEDS: divalproex ER 500 mg Tablet (24H) PO ×2 (12:38→20:54)
[2021-11-05 14:00] VITALS: BP 137/83; PULSE 87; RESP 19; TEMP 36.8; O2SAT 98
[2021-11-05] MEDS: OLANZapine 5 mg ODT PO (15:45)
[2021-11-05] MEDS: quetiapine 25 mg Tablet PO (17:14)
[2021-11-05 20:47] VITALS: BP 130/93; PULSE 89; RESP 18; TEMP 36.8; O2SAT 98
[2021-11-06] MEDS: trazodone 50 mg Tablet PO ×2 (00:28→22:36)
[2021-11-06] MEDS: hyDROXYzine 25 mg Capsule 50 MG PO ×2 (02:20→18:37)
[2021-11-06 06:00] VITALS: BP 138/89; PULSE 78; RESP 20; TEMP 36.6; O2SAT 98
--- NOTE | 2021-11-06 07:54 | W.PM.NPUPNS ---
Subjective NPU Subjective: He did not have any side effects from the Depakote 500 mg twice yesterday. He agreed to increase to 1500 mg today and get a blood level on Monday. We talked about blood levels and side effects of the medications again. He slept well last night. He says that he feels better. Mental Status Exam MSE Comments: This is an appropriate weight 31-year-old male who appears approximately his stated age. He is pleasant and cooperative with the evaluation. He is dressed in hospital scrubs with fair grooming. He has several days' growth of davidson. psychomotor activity is normal. Speech is at a regular rate and rhythm, normal volume, good articulation, not pressured. Alert, oriented X3 Attention and concentration appears to be normal. Memory is intact Mood is frustrated at being here but otherwise good. Affect is mildly dysphoric. Thought process is logical and goal-directed. Thought content: Denies auditory and visual hallucinations. No delusions or paranoia are noted. No current suicidal ideation. He denies homicidal ideation. Fund of knowledge is probably average. Insight and judgment appear to be poor. Impulse control is poor. Cognition: Level of Consciousness: Sedated Patient Cognition Impaired: No Ability to Follow Directions: Good Patient Orientation (long list): Person and Place Comprehension Ability: No Impairment Hallucination Type: None Delusion Description: Not Present Thought Process: Appropriate Affect: Affect Description: Appropriate and Anxious Behavior: Patient Behavior: Appropriate and Cooperative Speech Pattern: Appropriate and Clear Vitals/I&O/Wt Last Vital Signs Temp 97.8 F 11/06/21 06:00 Pulse 78 11/06/21 06:00 Resp 20 H 11/06/21 06:00 BP 138/89 11/06/21 06:00 Pulse Ox 98 11/06/21 06:00 11/05/21 11/06/21 11/06/21 22:59 06:59 14:59 Intake Total 380 / 380 Balance 380 / 380 Data NPU : 11/03/21 16:55 11/03/21 16:55 A&P Assessment and plan (1) History of ADHD: Status: Acute (2) Acute psychosis: Status: Acute (3) Alcohol intoxication: Status: Acute (4) Homicidal ideations: Status: Acute (5) Bipolar disorder with psychotic features: Status: Acute Plan This is a 31-year-old male who has had several admissions for psychotic symptoms and poor insight. Plan: 1. Continue current medication. We will add Depakote and gradually increase as tolerated. 2. Continue every 15 minute checks for safety. 3. Encourage individual, group and milieu therapies. 4. Encourage sober living treatment after discharge at the highest level of care to which he is willing to commit. 5. We will monitor for safety for himself in the community prior to discharge. Involuntary Hold Information 96 Hour Hold: 96 Hour Involuntary Admission: Yes 96 Hour Hold Ending Date: 11/10/21 96 Hour Hold Ending Time: 14:00 Attestations U Medical Necessity Statement*: Inpatient hospitalization is medically necessary and the clinically appropriate intervention at this time. We will initiate medications and make changes as indicated. Coding Level of Care Code Acute Electric Repair Supervisor for Tami Trammell Diagnoses History of ADHD Z86.59 Acute psychosis F23 Alcohol intoxication F10.929 Homicidal ideations R45.850 Bipolar disorder with psychotic features F31.9
[2021-11-06] MEDS: fexofenadine 60 mg Tablet 180 MG PO (07:55)
[2021-11-06] MEDS: gabapentin 300 mg Capsule PO ×3 (07:55→20:37)
[2021-11-06] MEDS: divalproex ER 500 mg Tablet (24H) PO (08:22)
[2021-11-06] MEDS: nicotine 2 mg Gum BUCCAL (09:50)
--- NOTE | 2021-11-06 10:24 | PC.NURSE ---
CARE NOTES EDUCATION PROVIDED ON DEPAKOTE VIA CARE NOTES. PT SIGNED THAT HE HAS RECEIVED EDUCATION FOR DEPAKOTE, SIDE EFFECTS, USES AND DOSAGES. ALL QUESTIONS ANSWERED AND SUPPORT VOICED.
[2021-11-06] MEDS: nicotine 4 mg lozenge MUCOUS MEM ×2 (12:38→16:53)
[2021-11-06 14:00] VITALS: BP 156/91; PULSE 100; RESP 20; TEMP 36.6; O2SAT 98
[2021-11-06] MEDS: OLANZapine 5 mg ODT PO (15:51)
[2021-11-06] MEDS: acetaminophen 325 mg Tablet 650 MG PO (17:38)
[2021-11-06 20:05] VITALS: BP 165/101; PULSE 92; RESP 18; TEMP 36.9; O2SAT 98
[2021-11-06] MEDS: divalproex ER 500 mg Tablet (24H) 1000 MG PO (20:37)
[2021-11-06] MEDS: quetiapine 25 mg Tablet PO (20:37)
[2021-11-06] MEDS: ziprasidone 20 mg/mL SDV IM (21:39)
--- NOTE | 2021-11-06 23:04 | PC.NURSE ---
Patient requested to start taking serowuel later, he stated I refused earlier because it was too early. I usually take it at night. Changed order to be given at 2100 per patient request and given with night meds. Patient stated he had been anxious for a while but had take vistaril around 630pm and did not feel like it helped. Given night meds and patient began getting more and more anxious and agitated. Patient pacing, getting agitated and argumentative with staff. Patient stated he now remembered that the seroquel made him more anxious so he does not want to take it anymore. Patient given IM geodon PRN as ordered for severe anxiety/agitation. Patient came back to nurses station later, more calm, but continued to c/o of being unable to sleep. PRN trazodone given as ordered at that time with noted effectiveness.
[2021-11-07 06:00] VITALS: BP 143/102; PULSE 88; RESP 18; TEMP 36.7; O2SAT 98; BMI 24.5
--- NOTE | 2021-11-07 06:46 | P.NPUPN_ITS ---
Subjective NPU Subjective: He does not feel that he has been having any side effects from the Depakote. He did not sleep as well last night. He asked for medication and they gave him Geodon IM which helped. He was given some more education on bipolar disorder and sleep. He is anxious to go home. He asked if we could get the Depakote level this morning and was told it would be best to wait until tomorrow. Even that will not be accurate because it is too early but it will give us an idea of where we are at. Mental Status Exam MSE Comments: This is an appropriate weight 31-year-old male who appears approximately his stated age. He is pleasant and cooperative with the evaluation. He is dressed in hospital scrubs with fair grooming. He has several days' growth of davidson. psychomotor activity is normal. Speech is at a regular rate and rhythm, normal volume, good articulation, not pressured. Alert, oriented X3 Attention and concentration appears to be normal. Memory is intact Mood is good. Affect is mildly dysphoric. Thought process is logical and goal-directed. Thought content: Denies auditory and visual hallucinations. No delusions or paranoia are noted. No current suicidal ideation. He denies homicidal ideation. Fund of knowledge is probably average. Insight and judgment appear to be fair, improved Impulse control is improved. Cognition: Level of Consciousness: Sedated Patient Cognition Impaired: No Ability to Follow Directions: Good Patient Orientation (long list): Time, Name and Age Comprehension Ability: No Impairment Hallucination Type: None Delusion Description: Not Present Thought Process: Appropriate Affect: Affect Description: Appropriate Behavior: Patient Behavior: Appropriate and Cooperative Speech Pattern: Appropriate and Clear Vitals/I&O/Wt Last Vital Signs Temp 98.0 F 11/07/21 06:00 Pulse 88 11/07/21 06:00 Resp 18 11/07/21 06:00 BP 143/102 11/07/21 06:00 Pulse Ox 98 11/07/21 06:00 Weight last 48 hrs Weight 96.162 kg Weight 96.162 kg Data NPU : 11/03/21 16:55 11/03/21 16:55 A&P Assessment and plan (1) History of ADHD: Status: Acute (2) Acute psychosis: Status: Acute (3) Alcohol intoxication: Status: Acute (4) Homicidal ideations: Status: Acute (5) Bipolar disorder with psychotic features: Status: Acute Plan This is a 31-year-old male who has had several admissions for psychotic symptoms, seems more likely bipolar. Plan: 1. Continue current medication. We will add Depakote and gradually increase as tolerated. 2. Continue every 15 minute checks for safety. 3. Encourage individual, group and milieu therapies. 4. Encourage sober living treatment after discharge at the highest level of care to which he is willing to commit. 5. We will monitor for safety for himself in the community prior to discharge. Involuntary Hold Information 96 Hour Hold: 96 Hour Involuntary Admission: Yes 96 Hour Hold Ending Date: 11/10/21 96 Hour Hold Ending Time: 14:00 Attestations NPU Medical Necessity Statement*: Inpatient hospitalization is medically necessary and the clinically appropriate intervention at this time. We will initiate medications and make changes as indicated. Coding Level of Care Code Acute Credit Analyst for Tami Trammell Diagnoses History of ADHD Z86.59 Acute psychosis F23 Alcohol intoxication F10.929 Homicidal ideations R45.850 Bipolar disorder with psychotic features F31.9
[2021-11-07] MEDS: nicotine 4 mg lozenge MUCOUS MEM ×3 (06:51→20:38)
[2021-11-07] MEDS: fexofenadine 60 mg Tablet 180 MG PO (08:12)
[2021-11-07] MEDS: divalproex ER 500 mg Tablet (24H) PO (08:12)
--- NOTE | 2021-11-07 08:13 | PC.NURSE ---
refused scheduled Norvasc, seroquel, and gabapentin
[2021-11-07] MEDS: acetaminophen 325 mg Tablet 650 MG PO ×2 (09:01→16:22)
[2021-11-07] MEDS: amlodipine 10 mg Tablet PO (10:21)
[2021-11-07] MEDS: OLANZapine 5 mg ODT PO (10:22)
[2021-11-07] MEDS: hyDROXYzine 25 mg Capsule 50 MG PO (12:02)
--- NOTE | 2021-11-07 12:06 | PC.NURSE ---
continues TO C/O ANXIETY, VISTARIL GIVEN ORDERED. PACING AND YELLING IN HALLWAY.
[2021-11-07 13:15] VITALS: BP 160/99; PULSE 88; RESP 16; TEMP 36.5; O2SAT 99
[2021-11-07] MEDS: divalproex ER 500 mg Tablet (24H) 1000 MG PO (20:09)
[2021-11-07] MEDS: gabapentin 300 mg Capsule 900 MG PO (20:09)
[2021-11-07] MEDS: trazodone 50 mg Tablet PO ×2 (20:11→21:34)
[2021-11-07 22:00] VITALS: BP 142/87; PULSE 80; RESP 18; TEMP 36.3; O2SAT 97
[2021-11-08] MEDS: nicotine 4 mg lozenge MUCOUS MEM ×2 (01:12→08:28)
[2021-11-08] MEDS: hyDROXYzine 25 mg Capsule 50 MG PO (01:37)
[2021-11-08 05:57] VITALS: BP 144/89; PULSE 138; RESP 22; TEMP 36.8; O2SAT 97
[2021-11-08] MEDS: fexofenadine 60 mg Tablet 180 MG PO (08:28)
[2021-11-08] MEDS: amlodipine 10 mg Tablet PO (08:29)
[2021-11-08] MEDS: divalproex ER 500 mg Tablet (24H) PO (08:29)
[2021-11-08] MEDS: acetaminophen 325 mg Tablet 650 MG PO (09:47)
--- NOTE | 2021-11-08 10:06 | W.PM.NPUDCS ---
Diagnoses at Discharge Discharge Diagnosis (1) History of ADHD: Status: Acute (2) Acute psychosis: Status: Acute (3) Alcohol intoxication: Status: Acute (4) Homicidal ideations: Status: Acute (5) Bipolar disorder with psychotic features: Status: Acute Reason for Visit Reason for Visit: 96 HOUR HOLD Brief History: History of Present Illness Yoandy Marcum is a 31 year old male admitted through our emergency department with the following report: 31 yo m brought in by police on 96 hr hold for threatening to kill the staff at two separate establishments.? He also noted that dogs were talking to him.? His cousin evidently today.? He tells me he also got into a verbal altercation with his father.? He has had a labile mood for police.? Patient recently discharged from the neuropsychiatric unit.? Patient does not admit to any drugs other than using alcohol today. ?Associated symptoms: Reports auditory hallucinations and homicidal ideation Affidavit from his father has talked of killing himself and others.? He is detached from reality for example talking to people who are either or not present.? Believing the dogs are telling him things.? Believing others are telling him things.? Making a general nuisance by banging things and hitting them and slamming doors etc.? Eating found food from the ground.? Throwing the puppy and then picked up a knife and threatened to kill him.? Brought in by police this morning. He was admitted to the neuropsychiatry unit for definitive treatment of these issues.? He denies making any statements about hurting other people.? He said that he might have expressed some frustration at a convenience store because his father was in the convenience store for 2 hours and the store would not let him in.? I asked him why they would have banned him from the store.? He said he had no idea.? 1 time he had bought some beer and was drinking it outside and they asked him to leave.? 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 He could not explain why he was in the hospital there.? He does admit that he has had manic episodes in which he does not sleep for days.? He denies any of the psychotic symptoms which it seems clear that he has during these times.? He does agree to start a mood stabilizer.? He does not want to take an antipsychotic.? He is on gabapentin for his pain.? He agreed to start some Depakote as a mood stabilizer.? He says that he is manic times, when he does not have access to his Adderall. Hospital Course Hospital Course He slowly acclimated to the individual, group and milieu therapies provided. He was started on Depakote and increased to 500 in the morning and 1000 at bedtime. His level after 2 days was 42. He tolerated these doses and showed steady improvement during his stay. He was able to contract for safety outside hospital prior to discharge. During the hospitalization, patient had routine laboratory studies which were within normal limits except for few outliers. Additionally there was a general medical evaluation which was also within normal limits and revealed no new acute processes. Discharge Summary: At the time of discharge, lethality was denied and psychosis was resolving. Mood and anxiety were well managed. Patient endorsed a plan to follow-up with the aftercare recommendations of the treatment team. Patient was evaluated and deemed to be absent credible lethality, and had achieved the maximum benefit from an inpatient hospitalization, so was discharged. Involuntary Hold Information 96 Hour Hold: 96 Hour Involuntary Admission: Yes 96 Hour Hold Ending Date: 11/10/21 96 Hour Hold Ending Time: 14:00 Mental Status Exam MSE Comments: This is an appropriate weight 31-year-old male who appears approximately his stated age. He is pleasant and cooperative with the evaluation. He is dressed in hospital scrubs with fair grooming. He has several days' growth of davidson. psychomotor activity is normal. Speech is at a regular rate and rhythm, normal volume, good articulation, not pressured. Alert, oriented X3 Attention and concentration appears to be normal. Memory is intact Mood is good. Affect is euthymic Thought process is logical and goal-directed. Thought content: Denies auditory and visual hallucinations. No delusions or paranoia are noted. No current suicidal ideation. He denies homicidal ideation. Fund of knowledge is probably average. Insight and judgment appear to be fair, improved Impulse control is improved. Cognition: Patient Appearance: Appropriate Level of Consciousness: Sedated Patient Cognition Impaired: No Ability to Follow Directions: Good Patient Orientation (long list): Person, Place, Time, Name, Age, Birthday, Day of Month, Day of Week, Month, Time of Day and Year Comprehension Ability: No Impairment Hallucination Type: None Delusion Description: Not Present Thought Process: Appropriate Affect: Affect Description: Appropriate Behavior: Patient Behavior: Appropriate and Cooperative Speech Pattern: Appropriate Discharge Data Studies Completed and Pending: Laboratory Results WBC 5.7 10^3/uL (4.0- 10.0) 11/03/21 16:55 RBC 4.79 10^6/uL (4.1 -5.3) 11/03/21 16:55 Hgb 14.2 g/dL (11.7-1 6.6) 11/03/21 16:55 Hct 43.7 % (42.0-52.0 ) 11/03/21 16:55 MCV 91.2 fl (80-94) 11/03/21 16:55 MCH 29.6 pg (28.0-34. 0) 11/03/21 16:55 MCHC 32.5 g/dL (30.0-3 6.0) 11/03/21 16:55 RDW 13.0 % (12.1-15.1 ) 11/03/21 16:55 Plt Count 273 10^3/cmm (130 -400) 11/03/21 16:55 MPV 9.5 fL (7.4-10.4) 11/03/21 16:55 Neut % (Auto) 57.6 % 11/03/21 16:55 Lymph % (Auto) 32.5 % 11/03/21 16:55 [place] % (Auto) 8.0 % 11/03/21 16:55 Eos % (Auto) 1.4 % 11/03/21 16:55 Baso % (Auto) 0.5 % 11/03/21 16:55 Neut # (Auto) 3.30 10^3/uL (1.8 -7.7) 11/03/21 16:55 Lymph # (Auto) 1.9 10^3/uL (0.8- 4.8) 11/03/21 16:55 [place] # (Auto) 0.5 10^3/uL (0.2- 0.9) 11/03/21 16:55 Eos # (Auto) 0.1 10^3/uL (0.0- 0.8) 11/03/21 16:55 Baso # (Auto) 0.0 10^3/uL (0.0- 0.1) 11/03/21 16:55 Nucleated RBC % (a uto) 0 % 11/03/21 16:55 Nucleated RBCs # 0.0 /100WBC 11/03/21 16:55 Sodium 138 mmol/L (136-1 45) 11/03/21 16:55 Potassium 3.9 mmol/L (3.5-5 .1) 11/03/21 16:55 Chloride 102 mmol/L (98-10 7) 11/03/21 16:55 Carbon Dioxide 23 mmol/L (22-29) 11/03/21 16:55 Anion Gap 16.9 (5-19) 11/03/21 16:55 BUN 8 mg/dL (6-20) 11/03/21 16:55 Creatinine 0.7 mg/dL (0.7-1. 2) 11/03/21 16:55 GFR Calculation 130.7 mL/min (90- 130) H 11/03/21 16:55 Glucose 194 mg/dL (65-115 ) H 11/03/21 16:55 Calculated Osmolal ity 290 mOsm/kg (285- 295) 11/03/21 16:55 Calcium 8.7 mg/dL (8.5-10 .5) 11/03/21 16:55 Total Bilirubin 0.2 mg/dL (0.15-1 .2) 11/03/21 16:55 AST 74 U/L (0-40) H 11/03/21 16:55 ALT 51 U/L (0-41) H 11/03/21 16:55 Alkaline Phosphata se 89 IU/L (40-130) 11/03/21 16:55 Total Protein 6.9 g/dL (6.6-8.7 ) 11/03/21 16:55 Albumin 4.3 g/dL (3.5-5.2 ) 11/03/21 16:55 Globulin 2.6 g/dL (1.3-4.6 ) 11/03/21 16:55 Urine Color Yellow (Yellow) 11/03/21 Unknown Urine Appearance Clear (CLEAR) 11/03/21 Unknown Urine pH 5 (5-7) 11/03/21 Unknown Ur Specific Gravit y 1.025 (1.005-1.0 30) 11/03/21 Unknown Urine Protein Neg (Negative) 11/03/21 Unknown Urine Glucose (UA) Norm (Normal) 11/03/21 Unknown Urine Ketones Negative (Negati ve) 11/03/21 Unknown Urine Blood Neg (Negative) 11/03/21 Unknown Urine Nitrate Negative (Negati ve) 11/03/21 Unknown Urine Bilirubin Neg (Negative) 11/03/21 Unknown Urine Urobilinogen Norm mg/dL (Negat dhaval) 11/03/21 Unknown Ur Leukocyte Tabby ase Negative (Negati ve) 11/03/21 Unknown Salicylates < 0.3 mg/dL (3-10 ) L 11/03/21 16:55 Urine Opiates Scre en Negative ng/mL (N egative) 11/03/21 Unknown Acetaminophen < 5.0 ug/mL (10-3 0) L 11/03/21 16:55 Ur Barbiturates Sc reen Negative ng/mL (N egative) 11/03/21 Unknown Valproic Acid 42.0 ug/mL (50-10 0) L 11/08/21 08:24 Ur Phencyclidine S crn Negative ng/mL (N egative) 11/03/21 Unknown Ur Amphetamines Sc reen Negative ng/mL (N egative) 11/03/21 Unknown U Benzodiazepines Scrn Negative ng/mL (N egative) 11/03/21 Unknown Urine Cocaine Scre en Negative ng/mL (N egative) 11/03/21 Unknown U Marijuana (THC) Screen Negative ng/mL (N egative) 11/03/21 Unknown Ethyl Alcohol 284 mg/dL (0-10) H 11/03/21 16:55 Vitals: Last Vital Signs Temp 98.2 F 11/08/21 05:57 Pulse 138 H 11/08/21 05:57 Resp 22 H 11/08/21 05:57 BP 144/89 11/08/21 05:57 Pulse Ox 97 11/08/21 05:57 Discharge Plan Discharge Patient Disposition: Home Condition: Stable Prescriptions: New divalproex 500 mg Tablet Extended Release 24 Hr 500 mg PO 0900 30 Days Qty: 30 1RF divalproex 500 mg Tablet Extended Release 24 Hr 1,000 mg PO BEDTIME 30 Days Qty: 60 1RF Continued trazodone 50 mg tablet 50 mg PO BEDTIME PRN (Reason: Insomnia) 0RF dextroamphetamine-amphetamine 20 mg tablet 10 mg PO DAILY@1200 0RF dextroamphetamine-amphetamine [Adderall XR] 30 mg capsule,extended release 24hr 30 mg PO DAILY 0RF gabapentin 300 mg capsule 300 mg PO TID 30 Days Qty: 90 0RF Discharge Orders: Discharge Order (Routine); Ordered 11/08/21 Ordered By: Baljinder Tabares Referrals: Dr. Daron Nuñez [Other] (November 30 at 9am) Discharge Diet: Regular Discharge Activity: Resume usual activity Patient Instructions: Opioid Safety Discharge Attestations NPU Time Spent in Discharge Care*: less than 30 min Specific Discharge Activities: Specific discharge activities: educating patient, discussing with behavioral health case manager/social workers/dc planners, documenting/other paperwork and evaluating patient/reviewing data Coding Level of Care Code Acute Chg FW DC note Diagnoses History of ADHD Z86.59 Acute psychosis F23 Alcohol intoxication F10.929 Homicidal ideations R45.850 Bipolar disorder with psychotic features F31.9
[2021-11-08 10:31] VITALS: BP 144/89; PULSE 138; RESP 20; TEMP 36.8; O2SAT 97
== END 2021-11-08 10:47 | disposition home or self-care (01) | DRG 897 ==
LOC: ER 11-04 06:41 → NP 11-04 13:09
PROVIDERS: Admitting Provider Psychiatry & Neurology Psychiatry; Emergency Provider Emergency Medicine; Visit Provider Psychiatry & Neurology Psychiatry
DX: F10.129 Alcohol abuse with intoxication, unspecified (principal); Y90.9 Presence of alcohol in blood, level not specified; R45.850 Homicidal ideations; F17.200 Nicotine dependence, unspecified, uncomplicated; F90.9 Attention-deficit hyperactivity disorder, unspecified type; F31.9 Bipolar disorder, unspecified
CPT/HCPCS: 36415; 80053; 80164; 80306; 80307; 81003; 85025; 96372; 97150; 97165; 99285; J1200; J1630; J2060; J3486